=== PATIENT | male | born 1970 | race Two or more races ===

== ENCOUNTER 2020-12-10 20:29 | Inpatient (IN) | payer BC, OTHER ==
[~2020-12-10] VITALS: Ht 175.3 cm; Wt 81.2 kg
[2020-12-10] MEDS ORDERED: SODIUM CHLORIDE 0.9% 1,000 ML IV ONE (21:00)
[2020-12-10] MEDS ORDERED: InsuLIN REG 1unit/0.01ml Soln (100units/ml) IV ONE (21:00)
[2020-12-10] MEDS ORDERED: ONDANSETRON HCL 4 MG/2 ML VIAL IV ONE (21:00)
[2020-12-10 21:29] LABS: Basophils # (auto) 0.1 10 ^3/uL (0-0.2); Basophils % (auto) 0.7 % (0.0-2.0); Eosinophils # (auto) 0 10 ^3/uL (0-0.8); Eosinophils % (auto) 0.4 % (0.0-7.0); Hematocrit 40.4 % (41.0-53.0); Hemoglobin 13.6 g/dL (13.5-17.5); Lymphocytes # (auto) 1.7 10 ^3/uL (0.4-5.4); Lymphocytes % (auto) 13.5 % (10.0-50.0); Mean Corpuscular Hemoglobin 32.3 pg (28.0-32.0); Mean Corpuscular Hgb Conc. 33.6 g/dL (32.0-36.0); Mean Corpuscular Volume 96.1 fL (80.0-100.0); Neutrophils # (auto) 9.9 10 ^3/uL (1.6-8.6); Neutrophils % (auto) 77.4 % (37.0-80.0); Red Blood Cells 4.21 10^6/uL (4.5-5.90); White Blood Cell 12.8 10^3/uL (4.4-10.8)
[2020-12-10 21:41] LABS: Albumin 3.8 g/dL (3.4-5.0); Anion Gap 19 (5-15); Blood Urea Nitrogen 40 mg/dL (7-18); Carbon Dioxide 17 mmol/L (21-32); Chloride 87 mmol/L (98-107); Potassium 4.7 mmol/L (3.5-5.1); Sodium 123 mmol/L (136-145)
[2020-12-10 21:50] LABS: Alanine Aminotransferase 21 U/L (16-61); Alkaline Phosphatase 125 U/L (45-117); Aspartate Aminotransferase 15 U/L (15-37); BUN/Creatinine Ratio 3.7; Bilirubin, Total 0.6 mg/dL (0.2-1.0); GFR African American 7 mL/min; GFR Non-African American 5 mL/min; Total Protein 8.8 g/dL (6.4-8.2)
[2020-12-10 21:53] LABS: Glucose 528 mg/dL (74-106)
[2020-12-11] MEDS ORDERED: SODIUM CHLORIDE 0.9% 1,000 ML IV SCH (00:30)
[2020-12-11] MEDS ORDERED: ACETAMINOPHEN 325 MG TAB PO PRN (00:30)
[2020-12-11] MEDS ORDERED: NITROGLYCERIN 0.4 MG SL TAB SL PRN (00:30)
[2020-12-11] MEDS ORDERED: ONDANSETRON HCL 4 MG/2 ML VIAL IV PRN (00:30)
[2020-12-11] MEDS ORDERED: MORPHINE SULFATE INJECTION 2 MG/ML SYRG IV PRN (00:30)
[2020-12-11] MEDS ORDERED: DEXTROSE (50%) 50ML SYRG IV PRN (00:30)
[2020-12-11] MEDS ORDERED: DOCUSATE SOD 100 MG CAP PO PRN (00:30)
[2020-12-11 07:02] LABS: Basophils # (auto) 0 10 ^3/uL (0-0.2); Basophils % (auto) 0.4 % (0.0-2.0); Eosinophils # (auto) 0.1 10 ^3/uL (0-0.8); Eosinophils % (auto) 0.9 % (0.0-7.0); Hematocrit 31.7 % (41.0-53.0); Hemoglobin 10.7 g/dL (13.5-17.5); Lymphocytes # (auto) 1.6 10 ^3/uL (0.4-5.4); Lymphocytes % (auto) 19.5 % (10.0-50.0); Mean Corpuscular Hemoglobin 32.4 pg (28.0-32.0); Mean Corpuscular Hgb Conc. 33.8 g/dL (32.0-36.0); Mean Corpuscular Volume 95.8 fL (80.0-100.0); Monocytes # (auto) 0.8 10 ^3/uL (0-1.3); Monocytes % (auto) 9.3 % (0.0-12.0); Neutrophils # (auto) 5.8 10 ^3/uL (1.6-8.6); Neutrophils % (auto) 69.9 % (37.0-80.0); Red Blood Cells 3.31 10^6/uL (4.5-5.90); Red Cell Distribution Width 13.9 % (11.8-14.3); White Blood Cell 8.2 10^3/uL (4.4-10.8)
[2020-12-11] MEDS: InsuLIN REG 1unit/0.01ml Soln (100units/ml) SC SCH ×4 (07:08→22:14)
[2020-12-11] MEDS: ACCU-CHEK COMFORT CURVE STRIP VI SCH ×4 (07:09→22:13)
[2020-12-11 07:12] LABS: Albumin 2.6 g/dL (3.4-5.0); Calcium 7.7 mg/dL (8.5-10.1); Potassium 4.7 mmol/L (3.5-5.1)
[2020-12-11 07:24] LABS: BUN/Creatinine Ratio 3.9; Bilirubin, Total 0.4 mg/dL (0.2-1.0); Total Protein 6.4 g/dL (6.4-8.2)
[2020-12-11] MEDS: FAMOTIDINE (10MG/ML) 2ML VL IV SCH (09:40)
[2020-12-11] MEDS: AZITHROMYCIN 500MG/ 250ML 250 ML IV SCH (09:40)
[2020-12-11] MEDS: ZINC SULFATE 220mg CAP or TAB PO SCH (09:41)
[2020-12-11] MEDS: MULTIPLE VITAMIN TAB PO SCH (09:42)
[2020-12-11] MEDS: ASCORBIC ACID 500 MG TAB PO SCH ×2 (09:42→22:13)
[2020-12-11] MEDS ORDERED: AZITHROMYCIN 500MG/ 250ML 250 ML IV SCH (10:00)
[2020-12-11] MEDS: SODIUM BICARBONATE 50ML VIAL 50 ML in SOD CHL 0.45% 1,000 ML IV SCH ×2 (11:34→19:00)
[2020-12-11 11:50] LABS: Urine Bacteria FEW /hpf (None Seen); Urine Blood 1+ /uL (Negative); Urine Specific Gravity 1.015 (1.001-1.035); Urine WBC 135 /hpf (0 - 3)
[2020-12-11 12:07] LABS: Creatinine, Urine 127 mg/dL (30.0-125.0); Sodium Urine 58 mmol/L (40-220)
[2020-12-11 12:15] LABS: Protein, Urine 203.3 mg/dL (0.0-11.9)
[2020-12-11] MEDS: HYDROcodone-ACET 5/325MG TAB PO PRN (12:41)
[2020-12-12] MEDS: InsuLIN REG 1unit/0.01ml Soln (100units/ml) SC SCH ×4 (06:36→21:07)
[2020-12-12] MEDS: SODIUM BICARBONATE 50ML VIAL 50 ML in SOD CHL 0.45% 1,000 ML IV SCH ×3 (06:36→21:15)
[2020-12-12] MEDS: ACCU-CHEK COMFORT CURVE STRIP VI SCH ×4 (06:36→21:08)
[2020-12-12 06:51] LABS: Basophils # (auto) 0 10 ^3/uL (0-0.2); Basophils % (auto) 0.2 % (0.0-2.0); Eosinophils # (auto) 0.1 10 ^3/uL (0-0.8); Eosinophils % (auto) 1.2 % (0.0-7.0); Hemoglobin 11.5 g/dL (13.5-17.5); Lymphocytes # (auto) 1.8 10 ^3/uL (0.4-5.4); Lymphocytes % (auto) 22.9 % (10.0-50.0); Mean Corpuscular Hemoglobin 32.1 pg (28.0-32.0); Mean Corpuscular Hgb Conc. 33.8 g/dL (32.0-36.0); Mean Corpuscular Volume 95.2 fL (80.0-100.0); Monocytes # (auto) 0.8 10 ^3/uL (0-1.3); Monocytes % (auto) 9.9 % (0.0-12.0); Neutrophils # (auto) 5.2 10 ^3/uL (1.6-8.6); Neutrophils % (auto) 65.8 % (37.0-80.0); Red Blood Cells 3.57 10^6/uL (4.5-5.90); Red Cell Distribution Width 13.9 % (11.8-14.3); White Blood Cell 7.9 10^3/uL (4.4-10.8)
[2020-12-12 07:19] LABS: Albumin 2.7 g/dL (3.4-5.0); BUN/Creatinine Ratio 4.4; Bilirubin, Total 0.4 mg/dL (0.2-1.0); Calcium 7.9 mg/dL (8.5-10.1); Total Protein 6.7 g/dL (6.4-8.2)
[2020-12-12] MEDS ORDERED: FUROSEMIDE 100 MG/10ML VIAL IV ONE (09:15)
[2020-12-12] MEDS: ASCORBIC ACID 500 MG TAB PO SCH ×2 (10:42→21:07)
[2020-12-12] MEDS: MULTIPLE VITAMIN TAB PO SCH (10:42)
[2020-12-12] MEDS: ZINC SULFATE 220mg CAP or TAB PO SCH (10:42)
[2020-12-12] MEDS: AZITHROMYCIN 500MG/ 250ML 250 ML IV SCH (10:42)
[2020-12-12] MEDS: HYDROcodone-ACET 5/325MG TAB PO PRN (15:22)
[2020-12-12 22:00] VITALS: BP 117/70
[2020-12-12 22:09] VITALS: BP 122/82
[2020-12-13] MEDS ORDERED: SODIUM BICARBONATE 8.4 % INJ 50ML VIAL IV ONE (00:35)
[2020-12-13] MEDS ORDERED: METF-371 PO (02:20)
[2020-12-13] MEDS ORDERED: LISI40TA11 PO (02:20)
[2020-12-13] MEDS ORDERED: OMEP20TA PO (02:20)
[2020-12-13 05:00] VITALS: BP 98/56
[2020-12-13] MEDS: ACCU-CHEK COMFORT CURVE STRIP VI SCH ×2 (05:22→11:35)
[2020-12-13] MEDS: InsuLIN REG 1unit/0.01ml Soln (100units/ml) SC SCH ×2 (05:26→11:35)
[2020-12-13 05:36] LABS: Basophils # (auto) 0 10 ^3/uL (0-0.2); Basophils % (auto) 0.2 % (0.0-2.0); Eosinophils # (auto) 0.1 10 ^3/uL (0-0.8); Eosinophils % (auto) 1.2 % (0.0-7.0); Hematocrit 30.9 % (41.0-53.0); Hemoglobin 10.8 g/dL (13.5-17.5); Lymphocytes % (auto) 30.6 % (10.0-50.0); Mean Corpuscular Hemoglobin 32.6 pg (28.0-32.0); Mean Corpuscular Volume 93.2 fL (80.0-100.0); Monocytes # (auto) 0.6 10 ^3/uL (0-1.3); Neutrophils # (auto) 3.7 10 ^3/uL (1.6-8.6); Nucleated Red Blood Cells % 0.1 %; Red Blood Cells 3.32 10^6/uL (4.5-5.90); Red Cell Distribution Width 13.6 % (11.8-14.3); White Blood Cell 6.4 10^3/uL (4.4-10.8)
[2020-12-13 06:00] LABS: BUN/Creatinine Ratio 8.4; Calcium 7.6 mg/dL (8.5-10.1); Potassium 3.5 mmol/L (3.5-5.1)
[2020-12-13] MEDS: SODIUM BICARBONATE 50ML VIAL 50 ML in SOD CHL 0.45% 1,000 ML IV SCH ×2 (06:20→10:31)
[2020-12-13 09:03] VITALS: BP 99/55
[2020-12-13] MEDS: MULTIPLE VITAMIN TAB PO SCH (10:12)
[2020-12-13] MEDS: AZITHROMYCIN 500MG/ 250ML 250 ML IV SCH (10:12)
[2020-12-13] MEDS: ASCORBIC ACID 500 MG TAB PO SCH (10:13)
[2020-12-13] MEDS: FAMOTIDINE (10MG/ML) 2ML VL IV SCH (10:13)
[2020-12-13] MEDS: ZINC SULFATE 220mg CAP or TAB PO SCH (10:13)
[2020-12-13 12:55] VITALS: BP 130/73
[2020-12-13 14:36] VITALS: BP 105/61
== END 2020-12-13 15:40 | disposition home or self-care (01) | DRG 871 ==
LOC: ER 20:30 → TELE 12-11 00:21 → WEST WING 12-12 18:25
PROVIDERS: ADMIT Nurse Practitioner Family; ATTEND Family Medicine
DX: A41.9 Sepsis, unspecified organism (principal); E11.10 Type 2 diabetes mellitus with ketoacidosis without coma; E87.1 Hypo-osmolality and hyponatremia; N17.9 Acute kidney failure, unspecified; E11.22 Type 2 diabetes mellitus with diabetic chronic kidney disease; E11.40 Type 2 diabetes mellitus with diabetic neuropathy, unspecified; E86.0 Dehydration; I12.9 Hypertensive chronic kidney disease with stage 1 through stage 4 chronic kidney disease, or unspecified chronic kidney disease; Z20.822 Contact with and (suspected) exposure to COVID-19; N18.9 Chronic kidney disease, unspecified; Z88.0 Allergy status to penicillin; Z79.84 Long term (current) use of oral hypoglycemic drugs; Z91.19 Patient's noncompliance with other medical treatment and regimen
CPT/HCPCS: 36415; 36600; 71045; 76775; 80048; 80053; 81001; 82010; 82550; 82570; 82805; 82962; 83036; 83605; 83615; 83735; 84156; 84300; 84484; 85025; 87426; 96361; 96374; 96375; G0378; J1815; J2405; J3490